=== PATIENT | male | born 1945 | race Asian ===

== ENCOUNTER 2023-06-19 19:08 | Emergency (ER) | payer MEDICARE, BC ==
[~2023-06-19] VITALS: Ht 167.6 cm; Wt 68.9 kg
[2023-06-19 20:01] LABS: EOSINOPHILS % (AUTO) 0.1 % (0.0-6.0); HEMATOCRIT 24 % (39-51); HEMOGLOBIN 7.5 g/dL (13.5-17.5); LYMPHOCYTES # (AUTO) 0.2 K/uL (0.8-4.8); LYMPHOCYTES % (AUTO) 2.9 % (20.0-44.0); MEAN CORPUSCULAR HEMOGLOBIN 21 PG (26.0-33.0); MEAN CORPUSCULAR HGB CONC 31 g/dl (31.0-36.0); MEAN CORPUSCULAR VOLUME 68 fL (80-96); MONOCYTES # (AUTO) 0.8 K/uL (0.1-1.30); MONOCYTES % (AUTO) 12.8 % (2.0-12.0); NEUTROPHILS # (AUTO) 5.2 K/uL (1.8-8.9); NEUTROPHILS % (AUTO) 84.2 % (43.0-81.0); PLATELET COUNT (AUTO) 207 K/uL (150-450); RED BLOOD CELL COUNT(AUTO) 3.53 MIL/uL (4.5-6.0); RED CELL DISTRIBUTION WIDTH 17.7 % (11.5-15.0); WHITE BLOOD COUNT (AUTO) 6.1 K/uL (4.3-11.0)
[2023-06-19 20:33] LABS: CARBON DIOXIDE 23 mmol/L (21-32); CHLORIDE 110 mmol/L (98-107); CREATININE 4.3 mg/dL (0.6-1.3); GLUCOSE 113 mg/dL (74-106); POTASSIUM 3.6 mmol/L (3.5-5.1); SODIUM SERUM 146 mmol/L (136-145)
[2023-06-19 20:45] LABS: NT-PRO BNP 3412 pg/mL (0-125)
[2023-06-19 21:04] LABS: UREA NITROGEN, BLOOD 89 mg/dL (7-18)
[2023-06-19] MEDS ORDERED: AMOX-430 PO (21:08)
[2023-06-19] MEDS ORDERED: IV NS 0.9% 1,000 ML BAG IV ONE (21:30)
[2023-06-19 21:36] LABS: ANISOCYTOSIS 1+; BAND % (MANUAL) 16 % (0.0-5.0); HYPOCHROMASIA 1+; LYMPHOCYTES % (MANUAL) 4 % (16-48); MONOCYTES % (MANUAL) 7 % (0-11.0); MYELOCYTES % 3 % (0-0); NEUTROPHILS % (MANUAL) 70 (42-76); PLATELET ESTIMATE ADEQUATE
[2023-06-19 21:37] LABS: OVALOCYTES 1+
[2023-06-19 23:39] VITALS: BP 105/58; TEMP 98.7; O2SAT 94
== END 2023-06-19 23:40 ==
LOC: ER 19:19
DX: J98.4 Other disorders of lung (principal); R06.02 Shortness of breath; I10 Essential (primary) hypertension; G20.A1 Parkinson's disease without dyskinesia, without mention of fluctuations
CPT/HCPCS: 99285; 96360; 71045; 93005 ×2; 85025; 80048; 36415; 84484; 83880; 85007; J7030

== ENCOUNTER 2023-06-21 21:34 | Inpatient (IN) | payer MEDICARE, BC ==
[~2023-06-21] VITALS: Ht 172.7 cm; Wt 73.9 kg
[~2023-06-21 21:34] MED LIST: AMOX-430 PO
[2023-06-21] MEDS ORDERED: ATROPINE SULFATE INJ 1 MG/ML VIAL ONE (21:57)
[2023-06-21] MEDS ORDERED: IV NS 0.9% 1,000 ML BAG IV ONE (22:00)
[2023-06-21] MEDS ORDERED: ATROPINE SULFATE 1 MG/10 ML DISP.SYRIN IV ONE ×2 (22:00→22:30)
[2023-06-21 22:42] LABS: BASOPHILS # (AUTO) 0.2 K/uL (0.0-0.2); BASOPHILS % (AUTO) 1.3 % (0.0-2.0); EOSINOPHILS % (AUTO) 0.3 % (0.0-6.0); HEMATOCRIT 24 % (39-51); HEMOGLOBIN 7.2 g/dL (13.5-17.5); LYMPHOCYTES # (AUTO) 0.3 K/uL (0.8-4.8); LYMPHOCYTES % (AUTO) 2.8 % (20.0-44.0); MEAN CORPUSCULAR HEMOGLOBIN 21 PG (26.0-33.0); MEAN CORPUSCULAR HGB CONC 31 g/dl (31.0-36.0); MEAN CORPUSCULAR VOLUME 69 fL (80-96); MONOCYTES # (AUTO) 0.5 K/uL (0.1-1.30); MONOCYTES % (AUTO) 4.4 % (2.0-12.0); NEUTROPHILS % (AUTO) 91.2 % (43.0-81.0); PLATELET COUNT (AUTO) 218 K/uL (150-450); RED BLOOD CELL COUNT(AUTO) 3.42 MIL/uL (4.5-6.0); RED CELL DISTRIBUTION WIDTH 17.6 % (11.5-15.0)
[2023-06-21 22:57] LABS: CALCIUM, SERUM 8.3 mg/dL (8.5-10.1); CARBON DIOXIDE 20 mmol/L (21-32); CHLORIDE 107 mmol/L (98-107); CREATININE 5.2 mg/dL (0.6-1.3); GLUCOSE 148 mg/dL (74-106); SODIUM SERUM 143 mmol/L (136-145)
[2023-06-21 23:06] LABS: UREA NITROGEN, BLOOD 114 mg/dL (7-18)
[2023-06-21 23:12] LABS: ALANINE AMINOTRANSFERASE 7 U/L (12-78); ALBUMIN 2.4 g/dL (3.4-5.0); ALKALINE PHOSPHATASE 46 U/L (46-116); ASPARTATE AMINOTRANSFERASE 9 U/L (15-37); BILIRUBIN,DIRECT 0.1 mg/dL (0.0-0.2); BILIRUBIN,TOTAL 0.2 mg/dL (0.2-1.0); TOTAL PROTEIN, SERUM 5.5 g/dL (6.4-8.2)
[2023-06-22] VITALS (34 sets, daily range): BP systolic 90–138; BP diastolic 38–60; TEMP 95–98.4; O2SAT 94–100
[2023-06-22] MEDS ORDERED: EPINEPHRINE (1:1000) 1 MG/ML AMPUL ONE (00:13)
[2023-06-22] MEDS: EPINEPHRINE (1:1000) 10 MG in IV NS 0.9% 240 ML IV PRN ×2 (00:29→01:04)
[2023-06-22] MEDS ORDERED: Z GUARD REMEDY 4 OZ OINT TP PRN (01:30)
[2023-06-22] MEDS ORDERED: MAG HYDROX/AL HYDROX/SIMETH 30 ML UDC PO PRN (01:30)
[2023-06-22] MEDS ORDERED: NOREPINEPHRINE 32 MG in IV NS 0.9% 218 ML IV PRN (01:30)
[2023-06-22] MEDS ORDERED: ONDANSETRON HCL/PF 4 MG/2 ML VIAL IVP PRN (01:30)
[2023-06-22] MEDS ORDERED: ZOLPIDEM TARTRATE 5 MG TABLET PO PRN (01:30)
[2023-06-22] MEDS ORDERED: MAGNESIUM HYDROXIDE 30 ML UDC PO PRN (01:30)
[2023-06-22 01:51] LABS: PARTIAL THROMBOPLASTIN TIME 92.9 SEC (24.3-34.3)
[2023-06-22] MEDS ORDERED: EPINEPHRINE (1:1000) MDV 30 MG/30ML VIAL ONE (01:54)
[2023-06-22] MEDS ORDERED: ERGO50CA PO (02:01)
[2023-06-22] MEDS ORDERED: LACO200T2 PO (02:01)
[2023-06-22] MEDS ORDERED: FERR325T23 PO (02:01)
[2023-06-22] MEDS ORDERED: MELA1TAB17 PO (02:01)
[2023-06-22] MEDS ORDERED: SENN-261 PO (02:01)
[2023-06-22] MEDS ORDERED: LIOT5TAB11 PO (02:01)
[2023-06-22] MEDS ORDERED: WARF-68 PO (02:01)
[2023-06-22] MEDS ORDERED: CARB-36 PO (02:01)
[2023-06-22] MEDS ORDERED: CARV12.52 PO (02:01)
[2023-06-22] MEDS ORDERED: TAMS-12 PO (02:01)
[2023-06-22] MEDS ORDERED: FEBU40TA PO (02:01)
[2023-06-22] MEDS ORDERED: TRAZ-182 PO (02:01)
[2023-06-22] MEDS ORDERED: ISOS120T13 PO (02:01)
[2023-06-22] MEDS ORDERED: LEVE250T2 PO (02:01)
[2023-06-22] MEDS ORDERED: NIFE-34 PO (02:01)
[2023-06-22] MEDS ORDERED: LISI10TA29 PO (02:01)
[2023-06-22] MEDS ORDERED: POLY17PO4 PO (02:01)
[2023-06-22] MEDS ORDERED: IPRA4AER IH (02:01)
[2023-06-22] MEDS ORDERED: FOLI20CA PO (02:01)
[2023-06-22] MEDS ORDERED: HYDR100T27 PO (02:01)
[2023-06-22] MEDS ORDERED: VANCOMYCIN 1.5 GM in IV D5W 500ml IV ONE (02:30)
[2023-06-22] MEDS ORDERED: PIPERACILLIN /TAZOBACTAM 3.375 G in IV D5W 50 ML IV ONE (02:30)
[2023-06-22] MEDS: IV NS 0.9% 1,000 ML IV PRN ×2 (03:26→22:36)
[2023-06-22] MEDS ORDERED: VANCOMYCIN 1 GM /D5W 250 ML PB IV ONE (03:41)
[2023-06-22] MEDS ORDERED: PIPERACI/TAZO 3.375GM/D5W 50ML PB IV ONE (03:42)
[2023-06-22] MEDS: IPRATROPIUM NEB FS 0.5 MG/2.5 ML AMPUL.NEB NEB SCH ×3 (06:00→20:18)
[2023-06-22] MEDS: ALBUTEROL FS 2.5 MG/3 ML VIAL.NEB NEB SCH ×3 (06:00→20:18)
[2023-06-22] MEDS ORDERED: PHYTONADIONE INJ 10 MG/1 ML AMPUL SQ ONE (08:00)
[2023-06-22 08:32] LABS: INR > 10.00 (0.91-1.10)
[2023-06-22] MEDS ORDERED: PIPERACILLIN /TAZOBACTAM 3.375 G in IV D5W 50 ML IV SCH (09:00)
[2023-06-22] MEDS ORDERED: HYDR28.32 TP (09:31)
[2023-06-22] MEDS ORDERED: MELA5TAB PO (09:31)
[2023-06-22] MEDS ORDERED: IVER3TAB2 PO (09:31)
[2023-06-22] MEDS ORDERED: ALBU18HF2 IH (09:31)
[2023-06-22] MEDS ORDERED: WARF3TAB59 PO (09:31)
[2023-06-22] MEDS ORDERED: TRIA80CR12 TP (09:31)
[2023-06-22] MEDS ORDERED: PANT40TA49 PO (09:31)
[2023-06-22] MEDS ORDERED: FOLI0.4T6 PO (09:31)
[2023-06-22] MEDS ORDERED: CALC667C6 PO (09:31)
[2023-06-22] MEDS ORDERED: LEVO-146 PO (09:31)
[2023-06-22] MEDS ORDERED: BISA5TAB10 PO (09:31)
[2023-06-22] MEDS ORDERED: [UNRECOGNIZED DRUG - CODE] RIGHT EAR (09:31)
[2023-06-22 10:32] LABS: ALBUMIN 2.2 g/dL (3.4-5.0); ALKALINE PHOSPHATASE 53 U/L (46-116); ASPARTATE AMINOTRANSFERASE 8 U/L (15-37); BILIRUBIN,TOTAL 0.2 mg/dL (0.2-1.0); CALCIUM, SERUM 7.8 mg/dL (8.5-10.1); CARBON DIOXIDE 19 mmol/L (21-32); CHLORIDE 106 mmol/L (98-107); CREATININE 5.1 mg/dL (0.6-1.3); GLUCOSE 290 mg/dL (74-106); MAGNESIUM 2.2 mg/dL (1.8-2.4); POTASSIUM 3.7 mmol/L (3.5-5.1); SODIUM SERUM 140 mmol/L (136-145)
[2023-06-22 10:42] LABS: BASOPHILS # (AUTO) 0.1 K/uL (0.0-0.2); BASOPHILS % (AUTO) 0.5 % (0.0-2.0); EOSINOPHILS % (AUTO) 0.1 % (0.0-6.0); HEMATOCRIT 21 % (39-51); LYMPHOCYTES # (AUTO) 0.2 K/uL (0.8-4.8); LYMPHOCYTES % (AUTO) 1.5 % (20.0-44.0); MEAN CORPUSCULAR HEMOGLOBIN 22 PG (26.0-33.0); MEAN CORPUSCULAR HGB CONC 32 g/dl (31.0-36.0); MEAN CORPUSCULAR VOLUME 68 fL (80-96); MONOCYTES # (AUTO) 0.4 K/uL (0.1-1.30); MONOCYTES % (AUTO) 3.9 % (2.0-12.0); NEUTROPHILS # (AUTO) 9.9 K/uL (1.8-8.9); PLATELET COUNT (AUTO) 186 K/uL (150-450); RED BLOOD CELL COUNT(AUTO) 3.04 MIL/uL (4.5-6.0); RED CELL DISTRIBUTION WIDTH 17.7 % (11.5-15.0); WHITE BLOOD COUNT (AUTO) 10.6 K/uL (4.3-11.0)
[2023-06-22 10:45] LABS: HEMOGLOBIN 6.5 g/dL (13.5-17.5)
[2023-06-22 10:53] LABS: UREA NITROGEN, BLOOD 114 mg/dL (7-18)
[2023-06-22 11:04] LABS: ALANINE AMINOTRANSFERASE < 6 U/L (12-78)
[2023-06-22] MEDS ORDERED: PIPERACILLIN /TAZOBACTAM 3.375 G in IV D5W 100 ML IV SCH (12:00)
[2023-06-22 12:18] LABS: THYROID STIMULATING HORMONE 3.232 uIU/mL (0.358-3.74)
[2023-06-22] MEDS ORDERED: IPRATROPIUM NEB FS 0.5 MG/2.5 ML AMPUL.NEB NEB SCH (12:54)
[2023-06-22] MEDS ORDERED: ALBUTEROL FS 2.5 MG/3 ML VIAL.NEB NEB SCH (12:55)
[2023-06-22] MEDS: SOD FERRIC GLUC 125 MG in IV NS 0.9% 100 ML IV SCH (21:05)
[2023-06-22] MEDS: METRONIDAZOLE 500MG/ NS 100ML 500 MG in PREMIX 1 EA IV SCH (21:44)
[2023-06-22] MEDS: CEFEPIME 1 GM in IV D5W 50 ML IV SCH (23:13)
[2023-06-23] VITALS (11 sets, daily range): BP systolic 70–138; BP diastolic 44–68; TEMP 94–98.1; O2SAT 93–100
[2023-06-23] MEDS ORDERED: IV NS 0.9% 500 ML IV ONE ×2 (00:30→02:00)
[2023-06-23] MEDS: ALBUTEROL FS 2.5 MG/3 ML VIAL.NEB NEB SCH ×4 (01:54→20:14)
[2023-06-23] MEDS: IPRATROPIUM NEB FS 0.5 MG/2.5 ML AMPUL.NEB NEB SCH ×4 (01:54→20:14)
[2023-06-23 01:58] LABS: ANISOCYTOSIS 1+; MONOCYTES % (MANUAL) 1 % (0-11.0); PLATELET ESTIMATE ADEQUATE
[2023-06-23 01:59] LABS: OVALOCYTES 1+
[2023-06-23 02:04] LABS: BAND % (MANUAL) 2 % (0.0-5.0); LYMPHOCYTES % (MANUAL) 1 % (16-48); MYELOCYTES % 2 % (0-0); NEUTROPHILS % (MANUAL) 94 (42-76)
[2023-06-23] MEDS: METRONIDAZOLE 500MG/ NS 100ML 500 MG in PREMIX 1 EA IV SCH ×3 (04:50→20:58)
[2023-06-23 07:34] LABS: CREATINE KINASE, TOTAL 90 U/L (39-308)
[2023-06-23 07:36] LABS: BASOPHILS % (AUTO) 0.1 % (0.0-2.0); EOSINOPHILS # (AUTO) 0.1 K/uL (0.0-0.7); EOSINOPHILS % (AUTO) 1.5 % (0.0-6.0); HEMATOCRIT 28 % (39-51); HEMOGLOBIN 8.8 g/dL (13.5-17.5); LYMPHOCYTES # (AUTO) 0.2 K/uL (0.8-4.8); LYMPHOCYTES % (AUTO) 4.1 % (20.0-44.0); MEAN CORPUSCULAR HEMOGLOBIN 22 PG (26.0-33.0); MEAN CORPUSCULAR HGB CONC 32 g/dl (31.0-36.0); MEAN CORPUSCULAR VOLUME 70 fL (80-96); MONOCYTES # (AUTO) 0.3 K/uL (0.1-1.30); MONOCYTES % (AUTO) 6.6 % (2.0-12.0); NEUTROPHILS # (AUTO) 4.5 K/uL (1.8-8.9); NEUTROPHILS % (AUTO) 87.7 % (43.0-81.0); PLATELET COUNT (AUTO) 182 K/uL (150-450); RED BLOOD CELL COUNT(AUTO) 3.93 MIL/uL (4.5-6.0); RED CELL DISTRIBUTION WIDTH 18.8 % (11.5-15.0); WHITE BLOOD COUNT (AUTO) 5.1 K/uL (4.3-11.0)
[2023-06-23 07:38] LABS: ALANINE AMINOTRANSFERASE < 6 U/L (12-78); ALKALINE PHOSPHATASE 45 U/L (46-116); ASPARTATE AMINOTRANSFERASE 10 U/L (15-37); BILIRUBIN,TOTAL 0.3 mg/dL (0.2-1.0); CALCIUM, SERUM 7.4 mg/dL (8.5-10.1); CARBON DIOXIDE 15 mmol/L (21-32); CHLORIDE 109 mmol/L (98-107); CREATININE 5.3 mg/dL (0.6-1.3); GLUCOSE 66 mg/dL (74-106); MAGNESIUM 2.1 mg/dL (1.8-2.4); PHOSPHORUS 5.6 mg/dL (2.5-4.9); POTASSIUM 3.7 mmol/L (3.5-5.1); SODIUM SERUM 142 mmol/L (136-145); TOTAL PROTEIN, SERUM 4.7 g/dL (6.4-8.2)
[2023-06-23 07:49] LABS: UREA NITROGEN, BLOOD 114 mg/dL (7-18)
[2023-06-23] MEDS ORDERED: PHYTONADIONE INJ 10 MG/1 ML AMPUL IM SCH (09:30)
[2023-06-23] MEDS ORDERED: PHYTONADIONE INJ 10 MG/1 ML AMPUL SQ SCH (09:30)
[2023-06-23] MEDS: CEFEPIME 1 GM in IV D5W 50 ML IV SCH ×2 (10:25→22:57)
[2023-06-23] MEDS: CARBIDOPA/LEVODOPA 25/100 MG 1 UDTAB PO SCH ×3 (13:00→20:58)
[2023-06-23] MEDS ORDERED: FERROUS SULFATE (325 MG) 325 MG/TAB TABLET PO SCH (13:00)
[2023-06-23] MEDS: CALCIUM ACETATE 667 MG CAP/TAB PO SCH ×2 (13:00→17:30)
[2023-06-23] MEDS: SOD FERRIC GLUC 125 MG in IV NS 0.9% 100 ML IV SCH (14:31)
[2023-06-23 14:58] LABS: HEMOGLOBIN 9.6 g/dL (13.5-17.5)
[2023-06-23 15:08] LABS: INR 1.36 (0.91-1.10); PROTHROMBIN TIME 14.1 SECS (9.2-11.1)
[2023-06-23] MEDS: IV NS 0.9% 1,000 ML IV PRN (15:35)
[2023-06-23] MEDS ORDERED: NIFEDIPINE XL 60 MG TAB.ER.24 PO SCH (17:00)
[2023-06-23] MEDS ORDERED: CARVEDILOL 12.5 MG TABLET PO SCH (17:00)
[2023-06-23] MEDS: TAMSULOSIN 0.4 MG CAP.SR.24H PO SCH (17:28)
[2023-06-23] MEDS: LEVETIRACETAM (250 MG) 250 MG TABLET PO SCH (17:30)
[2023-06-23] MEDS: LACOSAMIDE 50 MG TABLET PO SCH (17:31)
[2023-06-23 19:40] LABS: APPEARANCE,URINE CLEAR (CLEAR); BILIRUBIN,URINE NEGATIVE (NEGATIVE); BLOOD, URINE 1+ Ery/uL (NEGATIVE); COLOR,URINE YELLOW (YELLOW); KETONES,URINE TRACE mg/dL (NEGATIVE); LEUKOCYTE ESTERASE ,URINE 2+ (NEGATIVE); NITRITE, URINE NEGATIVE (NEGATIVE); PH,URINE 5.5 (5.0-8.0); PROTEIN,URINE 2+ mg/dl (NEGATIVE); UGLUCOSE NEGATIVE (NEGATIVE); UROBILINOGEN,URINE 0.2 EU/dL (0.2)
[2023-06-23 20:00] LABS: ADD URINE CULTURE YES; BACTERIA,URINE 3+ /HPF (None Seen); MUCUS,URINE Moderate /LPF (None Seen); SQUAMOUS EPITHELIAL CELL,UR None Seen /HPF (None Seen)
[2023-06-23 20:18] LABS: HEMOGLOBIN 9.6 g/dL (13.5-17.5)
[2023-06-23 20:20] LABS: EOSINOPHIL,URINE None Seen
[2023-06-23 21:06] LABS: CREATININE, URINE 67.7 MG/DL (30.0-125.0); URINE TOTAL PROTEIN 169.7 mg/dL (0-11.9)
[2023-06-24] VITALS (15 sets, daily range): BP systolic 100–134; BP diastolic 47–56; TEMP 96–97.6; O2SAT 95–100
[2023-06-24] MEDS: ALBUTEROL FS 2.5 MG/3 ML VIAL.NEB NEB SCH ×4 (04:28→20:01)
[2023-06-24] MEDS: IPRATROPIUM NEB FS 0.5 MG/2.5 ML AMPUL.NEB NEB SCH ×4 (04:28→20:01)
[2023-06-24 05:08] LABS: PTH, INTACT 84 pg/mL (15-65)
[2023-06-24] MEDS: METRONIDAZOLE 500MG/ NS 100ML 500 MG in PREMIX 1 EA IV SCH ×3 (05:20→20:52)
[2023-06-24 06:32] LABS: HEMOGLOBIN 9.6 g/dL (13.5-17.5)
[2023-06-24 06:47] LABS: CALCIUM, SERUM 7.5 mg/dL (8.5-10.1); CARBON DIOXIDE 16 mmol/L (21-32); CHLORIDE 111 mmol/L (98-107); CREATININE 5.6 mg/dL (0.6-1.3); GLUCOSE 72 mg/dL (74-106); POTASSIUM 3.7 mmol/L (3.5-5.1); SODIUM SERUM 145 mmol/L (136-145)
[2023-06-24 06:50] LABS: UREA NITROGEN, BLOOD 104 mg/dL (7-18)
[2023-06-24 06:52] LABS: INR 1.13 (0.91-1.10); PROTHROMBIN TIME 11.9 SECS (9.2-11.1)
[2023-06-24] MEDS: IV NS 0.9% 1,000 ML IV PRN (07:35)
[2023-06-24] MEDS: PANTOPRAZOLE 40 MG TABLET.DR PO SCH (07:36)
[2023-06-24] MEDS: LEVOTHYROXINE SODIUM 50 MCG TABLET PO SCH (07:36)
[2023-06-24] MEDS ORDERED: LISINOPRIL (10MG) 10 MG TABLET PO SCH (09:00)
[2023-06-24] MEDS ORDERED: ENOXAPARIN SODIUM 80 MG/0.8 ML DISP.SYRIN SQ SCH (09:00)
[2023-06-24] MEDS: TAMSULOSIN 0.4 MG CAP.SR.24H PO SCH ×3 (09:27→16:37)
[2023-06-24] MEDS: CARBIDOPA/LEVODOPA 25/100 MG 1 UDTAB PO SCH ×4 (09:27→20:52)
[2023-06-24] MEDS: CALCIUM ACETATE 667 MG CAP/TAB PO SCH ×4 (09:27→16:38)
[2023-06-24] MEDS: LEVETIRACETAM (250 MG) 250 MG TABLET PO SCH ×3 (09:27→16:38)
[2023-06-24] MEDS: LACOSAMIDE 50 MG TABLET PO SCH ×3 (09:28→16:38)
[2023-06-24] MEDS: CEFEPIME 1 GM in IV D5W 50 ML IV SCH ×2 (10:35→23:05)
[2023-06-24 12:07] LABS: *SPE A/G RATIO 1.2 (0.7-1.7); *SPE ALBUMIN 2.3 g/dL (2.9-4.4); *SPE ALPHA-1-GLOBULIN 0.3 g/dL (0.0-0.4); *SPE ALPHA-2-GLOBULIN 0.6 g/dL (0.4-1.0); *SPE BETA GLOBULIN 0.7 g/dL (0.7-1.3); *SPE M-SPIKE Not Observed g/dL (Not Observed); *SPE PROTEIN TOTAL 4.3 g/dL (6.0-8.5); *SPEGAMMA GLOBULIN 0.5 g/dL (0.4-1.8)
[2023-06-24] MEDS: VANCOMYCIN HCL 125 MG/2.5 ML ORAL.SUSP PO SCH ×3 (12:52→23:05)
[2023-06-24] MEDS: SOD FERRIC GLUC 125 MG in IV NS 0.9% 100 ML IV SCH (14:44)
[2023-06-24] MEDS: WARFARIN SODIUM 5 MG TABLET PO SCH ×2 (16:22→16:37)
[2023-06-25] VITALS (14 sets, daily range): BP systolic 111–148; BP diastolic 45–85; TEMP 96.8–98.6; O2SAT 94–100
[2023-06-25] MEDS: IPRATROPIUM NEB FS 0.5 MG/2.5 ML AMPUL.NEB NEB SCH ×5 (01:18→20:28)
[2023-06-25] MEDS: ALBUTEROL FS 2.5 MG/3 ML VIAL.NEB NEB SCH ×5 (01:18→20:28)
[2023-06-25] MEDS: IV NS 0.9% 1,000 ML IV PRN ×2 (01:52→20:07)
[2023-06-25] MEDS: ACETAMINOPHEN 325 MG TABLET PO PRN (02:13)
[2023-06-25] MEDS ORDERED: VANCOMYCIN 1 GM in IV D5W 250ml IV SCH (04:00)
[2023-06-25] MEDS: METRONIDAZOLE 500MG/ NS 100ML 500 MG in PREMIX 1 EA IV SCH ×3 (04:54→20:10)
[2023-06-25] MEDS: VANCOMYCIN HCL 125 MG/2.5 ML ORAL.SUSP PO SCH ×4 (05:02→23:36)
[2023-06-25 06:22] LABS: BASOPHILS % (AUTO) 0.2 % (0.0-2.0); EOSINOPHILS # (AUTO) 0.1 K/uL (0.0-0.7); EOSINOPHILS % (AUTO) 1.5 % (0.0-6.0); HEMATOCRIT 30 % (39-51); HEMOGLOBIN 9.2 g/dL (13.5-17.5); LYMPHOCYTES # (AUTO) 0.4 K/uL (0.8-4.8); LYMPHOCYTES % (AUTO) 5.4 % (20.0-44.0); MEAN CORPUSCULAR HEMOGLOBIN 22 PG (26.0-33.0); MEAN CORPUSCULAR HGB CONC 31 g/dl (31.0-36.0); MEAN CORPUSCULAR VOLUME 72 fL (80-96); MONOCYTES # (AUTO) 0.7 K/uL (0.1-1.30); NEUTROPHILS # (AUTO) 6.1 K/uL (1.8-8.9); NEUTROPHILS % (AUTO) 82.9 % (43.0-81.0); PLATELET COUNT (AUTO) 200 K/uL (150-450); RED BLOOD CELL COUNT(AUTO) 4.13 MIL/uL (4.5-6.0); WHITE BLOOD COUNT (AUTO) 7.3 K/uL (4.3-11.0)
[2023-06-25 06:30] LABS: INR 1.03 (0.91-1.10); PROTHROMBIN TIME 10.9 SECS (9.2-11.1)
[2023-06-25 06:37] LABS: CALCIUM, SERUM 7.8 mg/dL (8.5-10.1); CARBON DIOXIDE 15 mmol/L (21-32); CHLORIDE 112 mmol/L (98-107); CREATININE 5.7 mg/dL (0.6-1.3); GLUCOSE 78 mg/dL (74-106); MAGNESIUM 2.1 mg/dL (1.8-2.4); PHOSPHORUS 5.6 mg/dL (2.5-4.9); POTASSIUM 3.8 mmol/L (3.5-5.1); SODIUM SERUM 145 mmol/L (136-145)
[2023-06-25] MEDS: LEVOTHYROXINE SODIUM 50 MCG TABLET PO SCH (07:30)
[2023-06-25] MEDS: PANTOPRAZOLE 40 MG TABLET.DR PO SCH (07:30)
[2023-06-25 07:47] LABS: UREA NITROGEN, BLOOD 111 mg/dL (7-18)
[2023-06-25 08:42] LABS: EOSINOPHILS % (MANUAL) 1 % (0-4); LYMPHOCYTES % (MANUAL) 3 % (16-48); MONOCYTES % (MANUAL) 5 % (0-11.0); NEUTROPHILS % (MANUAL) 91 (42-76)
[2023-06-25 08:43] LABS: ANISOCYTOSIS 2+; PLATELET ESTIMATE ADEQUATE
[2023-06-25] MEDS: CALCIUM ACETATE 667 MG CAP/TAB PO SCH ×3 (09:00→18:00)
[2023-06-25] MEDS: LEVETIRACETAM (250 MG) 250 MG TABLET PO SCH ×2 (09:00→18:00)
[2023-06-25] MEDS: TAMSULOSIN 0.4 MG CAP.SR.24H PO SCH ×2 (09:00→17:00)
[2023-06-25] MEDS: CARBIDOPA/LEVODOPA 25/100 MG 1 UDTAB PO SCH ×4 (09:00→20:10)
[2023-06-25] MEDS: LACOSAMIDE 50 MG TABLET PO SCH ×2 (09:00→17:00)
[2023-06-25] MEDS ORDERED: ENOXAPARIN SODIUM 80 MG/0.8 ML DISP.SYRIN SQ SCH (09:30)
[2023-06-25] MEDS: ENOXAPARIN SODIUM 80 MG/0.8 ML DISP.SYRIN SQ SCH (10:00)
[2023-06-25] MEDS: CEFEPIME 1 GM in IV D5W 50 ML IV SCH ×2 (11:18→23:12)
[2023-06-25] MEDS ORDERED: LEVETIRACETAM (500MG) 500 MG in IV NS 0.9% 100 ML IV ONE (11:30)
[2023-06-25] MEDS ORDERED: LACOSAMIDE 200 MG in IV NS 0.9% 100 ML IV ONE (12:00)
[2023-06-25] MEDS: SOD FERRIC GLUC 125 MG in IV NS 0.9% 100 ML IV SCH (15:28)
[2023-06-25] MEDS: WARFARIN SODIUM 5 MG TABLET PO SCH (17:00)
[2023-06-25] MEDS ORDERED: ANESTHESIA TRAY IN PYXIS 1 EA TRAY MC ONE (17:34)
[2023-06-26] VITALS (28 sets, daily range): BP systolic 79–146; BP diastolic 43–83; TEMP 96.3–98.4; O2SAT 97–100
[2023-06-26] MEDS: ALBUTEROL FS 2.5 MG/3 ML VIAL.NEB NEB SCH ×4 (02:16→19:29)
[2023-06-26] MEDS: IPRATROPIUM NEB FS 0.5 MG/2.5 ML AMPUL.NEB NEB SCH ×4 (02:16→19:29)
[2023-06-26] MEDS: METRONIDAZOLE 500MG/ NS 100ML 500 MG in PREMIX 1 EA IV SCH ×3 (04:53→21:15)
[2023-06-26] MEDS: VANCOMYCIN HCL 125 MG/2.5 ML ORAL.SUSP PO SCH ×4 (05:41→23:58)
[2023-06-26 07:22] LABS: INR 1.02 (0.91-1.10); PROTHROMBIN TIME 10.8 SECS (9.2-11.1)
[2023-06-26 07:39] LABS: CALCIUM, SERUM 7.8 mg/dL (8.5-10.1); CARBON DIOXIDE 11 mmol/L (21-32); CHLORIDE 114 mmol/L (98-107); CREATININE 6.3 mg/dL (0.6-1.3); GLUCOSE 73 mg/dL (74-106); POTASSIUM 3.9 mmol/L (3.5-5.1); SODIUM SERUM 145 mmol/L (136-145)
[2023-06-26 07:41] LABS: UREA NITROGEN, BLOOD 104 mg/dL (7-18)
[2023-06-26] MEDS: PANTOPRAZOLE 40 MG TABLET.DR PO SCH (07:46)
[2023-06-26] MEDS: LEVOTHYROXINE SODIUM 50 MCG TABLET PO SCH (07:46)
[2023-06-26 08:52] LABS: BASOPHILS % (AUTO) 0.5 % (0.0-2.0); EOSINOPHILS % (AUTO) 0.6 % (0.0-6.0); HEMATOCRIT 32 % (39-51); HEMOGLOBIN 9.8 g/dL (13.5-17.5); LYMPHOCYTES # (AUTO) 0.5 K/uL (0.8-4.8); LYMPHOCYTES % (AUTO) 6.5 % (20.0-44.0); MEAN CORPUSCULAR HEMOGLOBIN 22 PG (26.0-33.0); MEAN CORPUSCULAR HGB CONC 31 g/dl (31.0-36.0); MEAN CORPUSCULAR VOLUME 73 fL (80-96); MONOCYTES # (AUTO) 0.7 K/uL (0.1-1.30); MONOCYTES % (AUTO) 9.8 % (2.0-12.0); NEUTROPHILS # (AUTO) 6.3 K/uL (1.8-8.9); NEUTROPHILS % (AUTO) 82.6 % (43.0-81.0); PLATELET COUNT (AUTO) 199 K/uL (150-450); RED BLOOD CELL COUNT(AUTO) 4.42 MIL/uL (4.5-6.0); RED CELL DISTRIBUTION WIDTH 20.1 % (11.5-15.0); WHITE BLOOD COUNT (AUTO) 7.6 K/uL (4.3-11.0)
[2023-06-26] MEDS: LEVETIRACETAM (250 MG) 250 MG TABLET PO SCH ×2 (09:26→17:00)
[2023-06-26] MEDS: LACOSAMIDE 50 MG TABLET PO SCH ×2 (09:26→17:00)
[2023-06-26] MEDS: CARBIDOPA/LEVODOPA 25/100 MG 1 UDTAB PO SCH ×4 (09:26→21:14)
[2023-06-26] MEDS: TAMSULOSIN 0.4 MG CAP.SR.24H PO SCH ×2 (09:26→17:00)
[2023-06-26] MEDS: CALCIUM ACETATE 667 MG CAP/TAB PO SCH ×3 (09:26→17:00)
[2023-06-26] MEDS: ENOXAPARIN SODIUM 80 MG/0.8 ML DISP.SYRIN SQ SCH (09:28)
[2023-06-26] MEDS: ACETAMINOPHEN 325 MG TABLET PO PRN (10:08)
[2023-06-26] MEDS: IV NS 0.9% 1,000 ML IV PRN ×2 (14:15→20:48)
[2023-06-26] MEDS: SOD FERRIC GLUC 125 MG in IV NS 0.9% 100 ML IV SCH (15:11)
[2023-06-26] MEDS: WARFARIN SODIUM 5 MG TABLET PO SCH (17:00)
[2023-06-26] MEDS ORDERED: Magnesium 1 GM/2 ML VIAL ONE ×2 (18:48→21:56)
[2023-06-26] MEDS ORDERED: VASOPRESSIN INJ 20 UNIT/ML VIAL ONE (19:10)
[2023-06-26] MEDS ORDERED: NOREPINEPHRINE 8 MG in IV NS 0.9% 242 ML IV PRN (20:30)
[2023-06-27] VITALS (68 sets, daily range): BP systolic 75–166; BP diastolic 38–100; TEMP 96.9–97.5; O2SAT 92–100
[2023-06-27] MEDS: IPRATROPIUM NEB FS 0.5 MG/2.5 ML AMPUL.NEB NEB SCH ×4 (01:46→19:56)
[2023-06-27] MEDS: ALBUTEROL FS 2.5 MG/3 ML VIAL.NEB NEB SCH ×4 (01:46→19:56)
[2023-06-27] MEDS: METRONIDAZOLE 500MG/ NS 100ML 500 MG in PREMIX 1 EA IV SCH ×3 (04:42→21:00)
[2023-06-27 05:14] LABS: BASOPHILS % (AUTO) 0.2 % (0.0-2.0); HEMATOCRIT 36 % (39-51); HEMOGLOBIN 10.9 g/dL (13.5-17.5); LYMPHOCYTES # (AUTO) 0.2 K/uL (0.8-4.8); LYMPHOCYTES % (AUTO) 1.8 % (20.0-44.0); MEAN CORPUSCULAR HEMOGLOBIN 22 PG (26.0-33.0); MEAN CORPUSCULAR HGB CONC 31 g/dl (31.0-36.0); MEAN CORPUSCULAR VOLUME 72 fL (80-96); MONOCYTES # (AUTO) 0.8 K/uL (0.1-1.30); MONOCYTES % (AUTO) 6.7 % (2.0-12.0); NEUTROPHILS # (AUTO) 11.3 K/uL (1.8-8.9); NEUTROPHILS % (AUTO) 91.3 % (43.0-81.0); PLATELET COUNT (AUTO) 222 K/uL (150-450); RED BLOOD CELL COUNT(AUTO) 4.95 MIL/uL (4.5-6.0); RED CELL DISTRIBUTION WIDTH 20.6 % (11.5-15.0); WHITE BLOOD COUNT (AUTO) 12.3 K/uL (4.3-11.0)
[2023-06-27 05:26] LABS: INR 1.07 (0.91-1.10); PROTHROMBIN TIME 11.3 SECS (9.2-11.1)
[2023-06-27 05:36] LABS: ALANINE AMINOTRANSFERASE < 6 U/L (12-78); ALBUMIN 2.1 g/dL (3.4-5.0); ALKALINE PHOSPHATASE 55 U/L (46-116); ASPARTATE AMINOTRANSFERASE 17 U/L (15-37); BILIRUBIN,TOTAL 0.4 mg/dL (0.2-1.0); CALCIUM, SERUM 8.2 mg/dL (8.5-10.1); CARBON DIOXIDE 11 mmol/L (21-32); CHLORIDE 114 mmol/L (98-107); CREATININE 6.4 mg/dL (0.6-1.3); GLUCOSE 85 mg/dL (74-106); SODIUM SERUM 146 mmol/L (136-145); TOTAL PROTEIN, SERUM 5.2 g/dL (6.4-8.2)
[2023-06-27 05:37] LABS: UREA NITROGEN, BLOOD 115 mg/dL (7-18)
[2023-06-27] MEDS: VANCOMYCIN HCL 125 MG/2.5 ML ORAL.SUSP PO SCH ×4 (05:48→23:57)
[2023-06-27 08:07] LABS: HEPATITIS B CORE AB, IgM Negative (Negative); HEPATITIS B CORE AB, TOTAL Negative (Negative); HEPATITIS B SURFACE AB Non Reactive (.)
[2023-06-27] MEDS: LACOSAMIDE 50 MG TABLET PO SCH ×2 (08:35→16:56)
[2023-06-27] MEDS: PANTOPRAZOLE 40 MG TABLET.DR PO SCH (08:35)
[2023-06-27] MEDS: TAMSULOSIN 0.4 MG CAP.SR.24H PO SCH ×2 (08:35→16:55)
[2023-06-27] MEDS: LEVETIRACETAM (250 MG) 250 MG TABLET PO SCH ×2 (08:35→16:58)
[2023-06-27] MEDS: LEVOTHYROXINE SODIUM 50 MCG TABLET PO SCH (08:35)
[2023-06-27] MEDS: CALCIUM ACETATE 667 MG CAP/TAB PO SCH ×3 (08:35→17:00)
[2023-06-27] MEDS: CARBIDOPA/LEVODOPA 25/100 MG 1 UDTAB PO SCH ×4 (08:35→21:00)
[2023-06-27] MEDS: ENOXAPARIN SODIUM 80 MG/0.8 ML DISP.SYRIN SQ SCH (08:37)
[2023-06-27] MEDS: WARFARIN SODIUM 5 MG TABLET PO SCH (16:57)
[2023-06-28] VITALS (22 sets, daily range): BP systolic 89–165; BP diastolic 55–95; TEMP 97.5–97.9; O2SAT 93–99
[2023-06-28] MEDS: ALBUTEROL FS 2.5 MG/3 ML VIAL.NEB NEB SCH ×4 (01:40→19:30)
[2023-06-28] MEDS: IPRATROPIUM NEB FS 0.5 MG/2.5 ML AMPUL.NEB NEB SCH ×4 (01:40→19:30)
[2023-06-28] MEDS: METRONIDAZOLE 500MG/ NS 100ML 500 MG in PREMIX 1 EA IV SCH ×3 (05:00→20:20)
[2023-06-28 05:10] LABS: BASOPHILS % (AUTO) 0.1 % (0.0-2.0); EOSINOPHILS % (AUTO) 0.1 % (0.0-6.0); HEMATOCRIT 29 % (39-51); HEMOGLOBIN 9.1 g/dL (13.5-17.5); LYMPHOCYTES # (AUTO) 0.3 K/uL (0.8-4.8); LYMPHOCYTES % (AUTO) 2.1 % (20.0-44.0); MEAN CORPUSCULAR HEMOGLOBIN 22 PG (26.0-33.0); MEAN CORPUSCULAR HGB CONC 32 g/dl (31.0-36.0); MEAN CORPUSCULAR VOLUME 70 fL (80-96); MONOCYTES # (AUTO) 0.8 K/uL (0.1-1.30); MONOCYTES % (AUTO) 6.2 % (2.0-12.0); NEUTROPHILS # (AUTO) 11.1 K/uL (1.8-8.9); NEUTROPHILS % (AUTO) 91.5 % (43.0-81.0); PLATELET COUNT (AUTO) 148 K/uL (150-450); RED BLOOD CELL COUNT(AUTO) 4.08 MIL/uL (4.5-6.0); RED CELL DISTRIBUTION WIDTH 19.8 % (11.5-15.0); WHITE BLOOD COUNT (AUTO) 12.2 K/uL (4.3-11.0)
[2023-06-28 05:14] LABS: ALANINE AMINOTRANSFERASE < 6 U/L (12-78); ALKALINE PHOSPHATASE 48 U/L (46-116); ASPARTATE AMINOTRANSFERASE 37 U/L (15-37); BILIRUBIN,TOTAL 0.3 mg/dL (0.2-1.0); CALCIUM, SERUM 8.1 mg/dL (8.5-10.1); CARBON DIOXIDE 17 mmol/L (21-32); CHLORIDE 109 mmol/L (98-107); CREATININE 4.8 mg/dL (0.6-1.3); GLUCOSE 65 mg/dL (74-106); POTASSIUM 3.1 mmol/L (3.5-5.1); SODIUM SERUM 145 mmol/L (136-145); TOTAL PROTEIN, SERUM 4.8 g/dL (6.4-8.2); UREA NITROGEN, BLOOD 75 mg/dL (7-18)
[2023-06-28 05:16] LABS: INR 1.32 (0.91-1.10); PROTHROMBIN TIME 13.7 SECS (9.2-11.1)
[2023-06-28] MEDS: VANCOMYCIN HCL 125 MG/2.5 ML ORAL.SUSP PO SCH ×3 (06:01→18:00)
[2023-06-28] MEDS: LEVOTHYROXINE SODIUM 50 MCG TABLET PO SCH (07:30)
[2023-06-28] MEDS: PANTOPRAZOLE 40 MG TABLET.DR PO SCH (07:30)
[2023-06-28] MEDS: CALCIUM ACETATE 667 MG CAP/TAB PO SCH ×3 (08:38→17:00)
[2023-06-28] MEDS: LEVETIRACETAM (250 MG) 250 MG TABLET PO SCH ×2 (08:38→17:00)
[2023-06-28] MEDS: CARBIDOPA/LEVODOPA 25/100 MG 1 UDTAB PO SCH ×4 (08:38→21:00)
[2023-06-28] MEDS: TAMSULOSIN 0.4 MG CAP.SR.24H PO SCH ×2 (08:38→17:00)
[2023-06-28] MEDS: LACOSAMIDE 50 MG TABLET PO SCH ×2 (08:38→17:00)
[2023-06-28] MEDS: WARFARIN SODIUM 5 MG TABLET PO SCH (17:00)
[2023-06-28] MEDS: IV NS 0.9% 1,000 ML IV PRN (18:45)
[2023-06-28] MEDS ORDERED: VANCOMYCIN 1.5 GM in IV D5W 500ml IV ONE (22:00)
[2023-06-28] MEDS ORDERED: VANCOMYCIN 1 GM /D5W 250 ML PB IV ONE ×2 (22:14→22:15)
[2023-06-29] VITALS (11 sets, daily range): BP systolic 62–112; BP diastolic 44–67; TEMP 97–98.1; O2SAT 85–100
[2023-06-29] MEDS ORDERED: ACETAMINOPHEN 650 MG/SUPP.RECT RC PRN (01:00)
[2023-06-29] MEDS: VANCOMYCIN HCL 125 MG/2.5 ML ORAL.SUSP PO SCH ×4 (01:00→17:39)
[2023-06-29] MEDS: ALBUTEROL FS 2.5 MG/3 ML VIAL.NEB NEB SCH ×4 (01:30→20:22)
[2023-06-29] MEDS: IPRATROPIUM NEB FS 0.5 MG/2.5 ML AMPUL.NEB NEB SCH ×4 (01:30→20:22)
[2023-06-29] MEDS: METRONIDAZOLE 500MG/ NS 100ML 500 MG in PREMIX 1 EA IV SCH ×3 (05:35→21:09)
[2023-06-29 06:00] LABS: BASOPHILS # (AUTO) 0.1 K/uL (0.0-0.2); BASOPHILS % (AUTO) 0.9 % (0.0-2.0); EOSINOPHILS % (AUTO) 0.1 % (0.0-6.0); HEMATOCRIT 29 % (39-51); HEMOGLOBIN 9.2 g/dL (13.5-17.5); LYMPHOCYTES # (AUTO) 0.3 K/uL (0.8-4.8); LYMPHOCYTES % (AUTO) 2.7 % (20.0-44.0); MEAN CORPUSCULAR HEMOGLOBIN 22 PG (26.0-33.0); MEAN CORPUSCULAR HGB CONC 31 g/dl (31.0-36.0); MEAN CORPUSCULAR VOLUME 70 fL (80-96); MONOCYTES # (AUTO) 0.8 K/uL (0.1-1.30); MONOCYTES % (AUTO) 6.3 % (2.0-12.0); NEUTROPHILS # (AUTO) 11.1 K/uL (1.8-8.9); PLATELET COUNT (AUTO) 159 K/uL (150-450); RED BLOOD CELL COUNT(AUTO) 4.19 MIL/uL (4.5-6.0); RED CELL DISTRIBUTION WIDTH 20.5 % (11.5-15.0); WHITE BLOOD COUNT (AUTO) 12.3 K/uL (4.3-11.0)
[2023-06-29 06:02] LABS: INR 1.81 (0.91-1.10); PROTHROMBIN TIME 18.5 SECS (9.2-11.1)
[2023-06-29 06:10] LABS: ALANINE AMINOTRANSFERASE < 6 U/L (12-78); ALKALINE PHOSPHATASE 53 U/L (46-116); ASPARTATE AMINOTRANSFERASE 27 U/L (15-37); BILIRUBIN,TOTAL 0.3 mg/dL (0.2-1.0); CALCIUM, SERUM 8.2 mg/dL (8.5-10.1); CARBON DIOXIDE 18 mmol/L (21-32); CHLORIDE 110 mmol/L (98-107); CREATININE 5.6 mg/dL (0.6-1.3); GLUCOSE 72 mg/dL (74-106); POTASSIUM 3.3 mmol/L (3.5-5.1); SODIUM SERUM 145 mmol/L (136-145); TOTAL PROTEIN, SERUM 5.1 g/dL (6.4-8.2); UREA NITROGEN, BLOOD 77 mg/dL (7-18)
[2023-06-29 07:06] LABS: HEPATITIS Be AB Positive (Negative)
[2023-06-29] MEDS: PANTOPRAZOLE 40 MG TABLET.DR PO SCH ×2 (07:30→08:27)
[2023-06-29] MEDS: LEVOTHYROXINE SODIUM 50 MCG TABLET PO SCH ×2 (07:30→08:27)
[2023-06-29] MEDS: CARBIDOPA/LEVODOPA 25/100 MG 1 UDTAB PO SCH ×5 (08:27→21:00)
[2023-06-29] MEDS: LACOSAMIDE 50 MG TABLET PO SCH ×3 (08:27→16:13)
[2023-06-29] MEDS: LEVETIRACETAM (250 MG) 250 MG TABLET PO SCH ×3 (08:27→16:11)
[2023-06-29] MEDS: TAMSULOSIN 0.4 MG CAP.SR.24H PO SCH ×3 (08:27→16:11)
[2023-06-29] MEDS: CALCIUM ACETATE 667 MG CAP/TAB PO SCH ×4 (08:27→16:11)
[2023-06-29] MEDS ORDERED: NEPRO VAN 237 ML CAN PO PRN (13:00)
[2023-06-29] MEDS: WARFARIN SODIUM 5 MG TABLET PO SCH (16:10)
[2023-06-29 22:27] LABS: ABG OXYGEN SATURATION 94.5 % (92.0-98.5); ABG PCO2 84.6 mmHg (35.0-45.0); ABG PH 6.884 (7.350-7.450); ABG PO2 100.5 mmHg (75.0-100.0); COHb 1.2 % (0.5-1.5); MetHb 0.3 % (0.0-1.5); O2Hb 93.1 % (94.0-97.0); SITE, ABG Right Brachial; VENT MODE, BG NC 36%
[2023-06-29] MEDS ORDERED: SODIUM BICARBONATE SYR 50 MEQ/50 ML DISP.SYRIN IV ONE (23:30)
[2023-06-29] MEDS ORDERED: NOREPINEPHRINE 4 MG/4 ML AMPUL IV ONE (23:53)
[2023-06-30] VITALS (94 sets, daily range): BP systolic 50–136; BP diastolic 33–104; TEMP 97–97.9; O2SAT 70–100
[2023-06-30] MEDS ORDERED: NOREPINEPHRINE 8 MG in IV NS 0.9% 242 ML IV PRN ×2
[2023-06-30] MEDS: NOREPINEPHRINE 8 MG in IV NS 0.9% 242 ML IV PRN ×2 (00:03→17:17)
[2023-06-30 00:26] LABS: ABG BASE EXCESS -13.5 mmol/L; ABG OXYGEN SATURATION 98.6 % (92.0-98.5); ABG PCO2 62.8 mmHg (35.0-45.0); ABG PH 7.049 (7.350-7.450); ABG TOTAL HEMOGLOBIN 10.5 G/dL (13.5-18.0); AaDO2 275.2 mmHg; COHb 0.3 % (0.5-1.5); MetHb 0.3 % (0.0-1.5); SITE, ABG Right Radial; VENT MODE, BG ST 15/5 24 100%
[2023-06-30] MEDS ORDERED: SODIUM BICARBONATE SYR 50 MEQ/50 ML DISP.SYRIN ONE (00:50)
[2023-06-30] MEDS ORDERED: Sodium Bicarbonate 100 MEQ in IV NS 0.9% 1,000 ML IV PRN (01:00)
[2023-06-30] MEDS: IPRATROPIUM NEB FS 0.5 MG/2.5 ML AMPUL.NEB NEB SCH ×4 (02:21→20:11)
[2023-06-30] MEDS: ALBUTEROL FS 2.5 MG/3 ML VIAL.NEB NEB SCH ×4 (02:21→19:30)
[2023-06-30 05:14] LABS: INR 1.54 (0.91-1.10); PROTHROMBIN TIME 15.9 SECS (9.2-11.1)
[2023-06-30] MEDS: METRONIDAZOLE 500MG/ NS 100ML 500 MG in PREMIX 1 EA IV SCH ×3 (05:19→21:44)
[2023-06-30] MEDS ORDERED: VANCOMYCIN POST DIALYSIS 500MG IV PRN ×2 (06:00)
[2023-06-30] MEDS: VANCOMYCIN HCL 125 MG/2.5 ML ORAL.SUSP PO SCH ×4 (06:00→17:21)
[2023-06-30] MEDS ORDERED: ALBUMIN 5% 12.5 GM in PREMIX 1 EA IV PRN (07:00)
[2023-06-30] MEDS: PANTOPRAZOLE 40 MG TABLET.DR PO SCH (07:30)
[2023-06-30] MEDS: LEVOTHYROXINE SODIUM 50 MCG TABLET PO SCH (07:30)
[2023-06-30] MEDS ORDERED: ALBUMIN 25% 25 GM in PREMIX 1 EA IV PRN (07:30)
[2023-06-30 08:07] LABS: BASOPHILS % (AUTO) 0.1 % (0.0-2.0); EOSINOPHILS % (AUTO) 0.1 % (0.0-6.0); HEMATOCRIT 36 % (39-51); LYMPHOCYTES # (AUTO) 0.2 K/uL (0.8-4.8); LYMPHOCYTES % (AUTO) 1.4 % (20.0-44.0); MEAN CORPUSCULAR HEMOGLOBIN 22 PG (26.0-33.0); MEAN CORPUSCULAR HGB CONC 31 g/dl (31.0-36.0); MEAN CORPUSCULAR VOLUME 71 fL (80-96); MONOCYTES # (AUTO) 0.6 K/uL (0.1-1.30); MONOCYTES % (AUTO) 4.1 % (2.0-12.0); NEUTROPHILS # (AUTO) 14.7 K/uL (1.8-8.9); NEUTROPHILS % (AUTO) 94.3 % (43.0-81.0); PLATELET COUNT (AUTO) 212 K/uL (150-450); RED BLOOD CELL COUNT(AUTO) 5.02 MIL/uL (4.5-6.0); RED CELL DISTRIBUTION WIDTH 21.2 % (11.5-15.0); WHITE BLOOD COUNT (AUTO) 15.6 K/uL (4.3-11.0)
[2023-06-30 08:15] LABS: CARBON DIOXIDE 18 mmol/L (21-32); CHLORIDE 111 mmol/L (98-107); GLUCOSE 72 mg/dL (74-106); POTASSIUM 3.6 mmol/L (3.5-5.1); SODIUM SERUM 147 mmol/L (136-145); UREA NITROGEN, BLOOD 78 mg/dL (7-18)
[2023-06-30 08:19] LABS: MAGNESIUM 2.2 mg/dL (1.8-2.4); PHOSPHORUS 7.3 mg/dL (2.5-4.9)
[2023-06-30 08:21] LABS: ALANINE AMINOTRANSFERASE < 6 U/L (12-78); ALKALINE PHOSPHATASE 75 U/L (46-116); ASPARTATE AMINOTRANSFERASE 26 U/L (15-37); BILIRUBIN,TOTAL 0.3 mg/dL (0.2-1.0); TOTAL PROTEIN, SERUM 5.2 g/dL (6.4-8.2)
[2023-06-30] MEDS: LEVETIRACETAM (250 MG) 250 MG TABLET PO SCH ×2 (08:42→16:47)
[2023-06-30] MEDS: TAMSULOSIN 0.4 MG CAP.SR.24H PO SCH ×2 (08:42→16:47)
[2023-06-30] MEDS: CARBIDOPA/LEVODOPA 25/100 MG 1 UDTAB PO SCH ×4 (08:42→21:00)
[2023-06-30] MEDS: CALCIUM ACETATE 667 MG CAP/TAB PO SCH ×3 (08:42→16:47)
[2023-06-30] MEDS: LACOSAMIDE 50 MG TABLET PO SCH ×2 (08:42→16:47)
[2023-06-30 10:08] LABS: ABG OXYGEN SATURATION 98.2 % (92.0-98.5); ABG PCO2 47.6 mmHg (35.0-45.0); ABG PH 7.136 (7.350-7.450); ABG PO2 178.1 mmHg (75.0-100.0); ABG TOTAL HEMOGLOBIN 11.4 G/dL (13.5-18.0); AaDO2 16.1 mmHg; COHb 0.5 % (0.5-1.5); MetHb 0.3 % (0.0-1.5); O2Hb 97.4 % (94.0-97.0); SITE, ABG Right Radial; VENT MODE, BG 3L NC
[2023-06-30] MEDS: methylPREDNISolone SOD SUCC 40 MG/ML VIAL IV SCH ×3 (10:18→21:44)
[2023-06-30] MEDS: Sodium Bicarbonate 100 MEQ in IV NS 0.9% 1,000 ML IV SCH ×2 (11:19→23:08)
[2023-06-30 11:36] LABS: BAND % (MANUAL) 3 % (0.0-5.0); NEUTROPHILS % (MANUAL) 88 (42-76)
[2023-06-30 11:37] LABS: LYMPHOCYTES % (MANUAL) 3 % (16-48); MONOCYTES % (MANUAL) 6 % (0-11.0)
[2023-06-30 11:39] LABS: PLATELET ESTIMATE ADEQUATE
[2023-06-30 11:40] LABS: ANISOCYTOSIS 1+; TARGET CELLS 1+
[2023-06-30] MEDS: WARFARIN SODIUM 5 MG TABLET PO SCH (16:47)
[2023-06-30] MEDS ORDERED: PHENYLEPHRINE 100 MG in IV NS 0.9% 240 ML IV PRN (18:30)
[2023-07-01] VITALS (72 sets, daily range): BP systolic 59–169; BP diastolic 45–98; TEMP 97.7–99; O2SAT 97–100
[2023-07-01] MEDS: ALBUTEROL FS 2.5 MG/3 ML VIAL.NEB NEB SCH ×4 (01:50→19:48)
[2023-07-01] MEDS: IPRATROPIUM NEB FS 0.5 MG/2.5 ML AMPUL.NEB NEB SCH ×4 (01:50→19:48)
[2023-07-01 03:51] LABS: BASOPHILS % (AUTO) 0.2 % (0.0-2.0); HEMATOCRIT 32 % (39-51); HEMOGLOBIN 10.3 g/dL (13.5-17.5); LYMPHOCYTES # (AUTO) 0.2 K/uL (0.8-4.8); LYMPHOCYTES % (AUTO) 1.2 % (20.0-44.0); MEAN CORPUSCULAR HEMOGLOBIN 22 PG (26.0-33.0); MEAN CORPUSCULAR HGB CONC 32 g/dl (31.0-36.0); MEAN CORPUSCULAR VOLUME 69 fL (80-96); MONOCYTES # (AUTO) 0.5 K/uL (0.1-1.30); MONOCYTES % (AUTO) 2.3 % (2.0-12.0); NEUTROPHILS # (AUTO) 19.5 K/uL (1.8-8.9); NEUTROPHILS % (AUTO) 96.3 % (43.0-81.0); PLATELET COUNT (AUTO) 202 K/uL (150-450); RED BLOOD CELL COUNT(AUTO) 4.66 MIL/uL (4.5-6.0); RED CELL DISTRIBUTION WIDTH 20.4 % (11.5-15.0); WHITE BLOOD COUNT (AUTO) 20.2 K/uL (4.3-11.0)
[2023-07-01 04:00] LABS: ALANINE AMINOTRANSFERASE < 6 U/L (12-78); ALBUMIN 1.9 g/dL (3.4-5.0); ALKALINE PHOSPHATASE 75 U/L (46-116); ASPARTATE AMINOTRANSFERASE 90 U/L (15-37); BILIRUBIN,TOTAL 0.4 mg/dL (0.2-1.0); CALCIUM, SERUM 8.1 mg/dL (8.5-10.1); CARBON DIOXIDE 18 mmol/L (21-32); CHLORIDE 114 mmol/L (98-107); CREATININE 5.4 mg/dL (0.6-1.3); GLUCOSE 85 mg/dL (74-106); INR 1.5 (0.91-1.10); MAGNESIUM 1.9 mg/dL (1.8-2.4); PHOSPHORUS 6.9 mg/dL (2.5-4.9); POTASSIUM 3.9 mmol/L (3.5-5.1); PROTHROMBIN TIME 15.5 SECS (9.2-11.1); SODIUM SERUM 152 mmol/L (136-145); UREA NITROGEN, BLOOD 66 mg/dL (7-18)
[2023-07-01 05:08] LABS: ANISOCYTOSIS 1+; PLATELET ESTIMATE ADEQUATE
[2023-07-01 05:09] LABS: HYPOCHROMASIA 2+
[2023-07-01] MEDS: methylPREDNISolone SOD SUCC 40 MG/ML VIAL IV SCH ×3 (05:10→21:34)
[2023-07-01] MEDS: METRONIDAZOLE 500MG/ NS 100ML 500 MG in PREMIX 1 EA IV SCH ×3 (05:11→21:34)
[2023-07-01 05:31] LABS: LYMPHOCYTES % (MANUAL) 1 % (16-48); NEUTROPHILS % (MANUAL) 99 (42-76)
[2023-07-01] MEDS: VANCOMYCIN HCL 125 MG/2.5 ML ORAL.SUSP PO SCH ×4 (05:56→17:48)
[2023-07-01] MEDS: PANTOPRAZOLE 40 MG TABLET.DR PO SCH (07:30)
[2023-07-01] MEDS: LEVOTHYROXINE SODIUM 50 MCG TABLET PO SCH (07:30)
[2023-07-01] MEDS: Sodium Bicarbonate 100 MEQ in IV NS 0.9% 1,000 ML IV SCH ×3 (07:45→19:27)
[2023-07-01] MEDS: CARBIDOPA/LEVODOPA 25/100 MG 1 UDTAB PO SCH ×4 (09:00→21:00)
[2023-07-01] MEDS: LEVETIRACETAM (250 MG) 250 MG TABLET PO SCH ×2 (09:00→17:00)
[2023-07-01] MEDS: CALCIUM ACETATE 667 MG CAP/TAB PO SCH ×3 (09:00→17:00)
[2023-07-01] MEDS: LACOSAMIDE 50 MG TABLET PO SCH ×2 (09:00→17:00)
[2023-07-01] MEDS ORDERED: AMIODARONE 450 MG in IV D5W 241 ML IV PRN (09:00)
[2023-07-01] MEDS ORDERED: AMIODARONE 150 MG in IV D5W 100 ML IV ONE (09:00)
[2023-07-01] MEDS ORDERED: AMIODARONE 450 MG in IV D5W 250 ML IV PRN (09:00)
[2023-07-01] MEDS: TAMSULOSIN 0.4 MG CAP.SR.24H PO SCH ×2 (09:00→17:00)
[2023-07-01 09:26] LABS: ABG OXYGEN SATURATION 97.5 % (92.0-98.5); ABG PCO2 31.9 mmHg (35.0-45.0); ABG PH 7.236 (7.350-7.450); ABG PO2 138.1 mmHg (75.0-100.0); AaDO2 110.4 mmHg; COHb 0.3 % (0.5-1.5); MetHb 0.3 % (0.0-1.5); O2Hb 96.9 % (94.0-97.0); SITE, ABG Right Radial
[2023-07-01] MEDS: WARFARIN SODIUM 5 MG TABLET PO SCH (17:00)
[2023-07-01] MEDS: hydrALAZINE HCL IV 20 MG VIAL IV PRN (22:33)
[2023-07-02] VITALS (20 sets, daily range): BP systolic 105–165; BP diastolic 45–90; TEMP 97.7–98.8; O2SAT 44–100
[2023-07-02] MEDS: ALBUTEROL FS 2.5 MG/3 ML VIAL.NEB NEB SCH ×3 (01:29→12:58)
[2023-07-02] MEDS: IPRATROPIUM NEB FS 0.5 MG/2.5 ML AMPUL.NEB NEB SCH ×3 (01:29→12:58)
[2023-07-02 04:40] LABS: BASOPHILS % (AUTO) 0.1 % (0.0-2.0); EOSINOPHILS % (AUTO) 0.1 % (0.0-6.0); HEMATOCRIT 26 % (39-51); HEMOGLOBIN 8.2 g/dL (13.5-17.5); LYMPHOCYTES # (AUTO) 0.3 K/uL (0.8-4.8); LYMPHOCYTES % (AUTO) 1.4 % (20.0-44.0); MEAN CORPUSCULAR HEMOGLOBIN 22 PG (26.0-33.0); MEAN CORPUSCULAR HGB CONC 31 g/dl (31.0-36.0); MEAN CORPUSCULAR VOLUME 69 fL (80-96); MONOCYTES # (AUTO) 0.5 K/uL (0.1-1.30); MONOCYTES % (AUTO) 2.5 % (2.0-12.0); NEUTROPHILS # (AUTO) 18.8 K/uL (1.8-8.9); NEUTROPHILS % (AUTO) 95.9 % (43.0-81.0); PLATELET COUNT (AUTO) 127 K/uL (150-450); RED BLOOD CELL COUNT(AUTO) 3.79 MIL/uL (4.5-6.0); RED CELL DISTRIBUTION WIDTH 19.3 % (11.5-15.0); WHITE BLOOD COUNT (AUTO) 19.6 K/uL (4.3-11.0)
[2023-07-02 04:42] LABS: INR 2.45 (0.91-1.10); PROTHROMBIN TIME 24.5 SECS (9.2-11.1)
[2023-07-02 04:47] LABS: ALANINE AMINOTRANSFERASE 428 U/L (12-78); ALBUMIN 1.7 g/dL (3.4-5.0); ALKALINE PHOSPHATASE 79 U/L (46-116); ASPARTATE AMINOTRANSFERASE -10 U/L (15-37); BILIRUBIN,TOTAL 0.8 mg/dL (0.2-1.0); CALCIUM, SERUM 7.6 mg/dL (8.5-10.1); CARBON DIOXIDE 23 mmol/L (21-32); CHLORIDE 113 mmol/L (98-107); CREATININE 4.2 mg/dL (0.6-1.3); GLUCOSE 99 mg/dL (74-106); PHOSPHORUS 6.1 mg/dL (2.5-4.9); POTASSIUM 3.7 mmol/L (3.5-5.1); SODIUM SERUM 153 mmol/L (136-145); TOTAL PROTEIN, SERUM 4.3 g/dL (6.4-8.2); UREA NITROGEN, BLOOD 55 mg/dL (7-18)
[2023-07-02] MEDS: METRONIDAZOLE 500MG/ NS 100ML 500 MG in PREMIX 1 EA IV SCH ×2 (05:08→12:28)
[2023-07-02] MEDS: methylPREDNISolone SOD SUCC 40 MG/ML VIAL IV SCH ×2 (05:08→12:28)
[2023-07-02 05:14] LABS: ABG BASE EXCESS -4.7 mmol/L; ABG OXYGEN SATURATION 90.6 % (92.0-98.5); ABG PCO2 39.4 mmHg (35.0-45.0); ABG PH 7.338 (7.350-7.450); ABG PO2 71.6 mmHg (75.0-100.0); ABG TOTAL HEMOGLOBIN 9.2 G/dL (13.5-18.0); AaDO2 168.3 mmHg; COHb 0.3 % (0.5-1.5); MetHb 0.3 % (0.0-1.5); O2Hb 90.1 % (94.0-97.0); SITE, ABG Right Radial
[2023-07-02] MEDS: Sodium Bicarbonate 100 MEQ in IV NS 0.9% 1,000 ML IV SCH (05:26)
[2023-07-02 05:39] LABS: ANISOCYTOSIS 1+; HYPOCHROMASIA 2+; LYMPHOCYTES % (MANUAL) 2 % (16-48); MONOCYTES % (MANUAL) 1 % (0-11.0); NEUTROPHILS % (MANUAL) 97 (42-76); PLATELET ESTIMATE DECREASED
[2023-07-02 05:40] LABS: TARGET CELLS 1+
[2023-07-02] MEDS: VANCOMYCIN HCL 125 MG/2.5 ML ORAL.SUSP PO SCH ×3 (06:00→12:00)
[2023-07-02] MEDS: hydrALAZINE HCL IV 20 MG VIAL IV PRN (06:08)
[2023-07-02] MEDS: LEVOTHYROXINE SODIUM 50 MCG TABLET PO SCH (07:30)
[2023-07-02] MEDS: PANTOPRAZOLE 40 MG TABLET.DR PO SCH (07:30)
[2023-07-02] MEDS: TAMSULOSIN 0.4 MG CAP.SR.24H PO SCH (08:01)
[2023-07-02] MEDS: CARBIDOPA/LEVODOPA 25/100 MG 1 UDTAB PO SCH ×2 (08:02→12:26)
[2023-07-02] MEDS: LACOSAMIDE 50 MG TABLET PO SCH (08:02)
[2023-07-02] MEDS: LEVETIRACETAM (250 MG) 250 MG TABLET PO SCH (08:02)
[2023-07-02] MEDS: CALCIUM ACETATE 667 MG CAP/TAB PO SCH ×2 (08:02→12:26)
[2023-07-02 09:28] LABS: ABG BASE EXCESS -3.7 mmol/L; ABG OXYGEN SATURATION 97.3 % (92.0-98.5); ABG PCO2 38.7 mmHg (35.0-45.0); ABG PO2 138.6 mmHg (75.0-100.0); AaDO2 102.1 mmHg; MetHb 0.3 % (0.0-1.5); SITE, ABG Right Radial; VENT MODE, BG BIPAP 15/5
[2023-07-02] MEDS ORDERED: IV NS 0.9% 250 ML IV PRN ×2 (09:30→10:00)
[2023-07-02] MEDS ORDERED: IV D5W 1,000 ML IV PRN (13:30)
== END 2023-07-02 15:46 | DRG 871 ==
LOC: ER 21:36 → ICU 06-22 01:52 → TELE1 06-22 15:28 → ICU 06-26 20:09 → TELE1 06-28 14:58 → ICU 06-29 22:54
PROVIDERS: ADMIT Nurse Practitioner Acute Care
PROC: 30233N1 Transfusion of Nonautologous Red Blood Cells into Peripheral Vein, Percutaneous Approach (ICD-10-PCS; principal; 2023-06-22)
PROC: 5A1D70Z Performance of Urinary Filtration, Intermittent, Less than 6 Hours Per Day (ICD-10-PCS; 2023-06-26)
PROC: 0DB68ZX Excision of Stomach, Via Natural or Artificial Opening Endoscopic, Diagnostic (ICD-10-PCS; 2023-06-26)
PROC: 02HV33Z Insertion of Infusion Device into Superior Vena Cava, Percutaneous Approach (ICD-10-PCS; 2023-06-26)
PROC: B548ZZA Ultrasonography of Superior Vena Cava, Guidance (ICD-10-PCS; 2023-06-26)
DX: A41.9 Sepsis, unspecified organism (principal); G93.41 Metabolic encephalopathy; N17.0 Acute kidney failure with tubular necrosis; R65.21 Severe sepsis with septic shock; J96.01 Acute respiratory failure with hypoxia; E44.0 Moderate protein-calorie malnutrition; E87.4 Mixed disorder of acid-base balance; I48.92 Unspecified atrial flutter; J98.11 Atelectasis; N39.0 Urinary tract infection, site not specified; A04.72 Enterocolitis due to Clostridium difficile, not specified as recurrent; I82.623 Acute embolism and thrombosis of deep veins of upper extremity, bilateral; J90 Pleural effusion, not elsewhere classified; I13.0 Hypertensive heart and chronic kidney disease with heart failure and stage 1 through stage 4 chronic kidney disease, or unspecified chronic kidney disease; G40.909 Epilepsy, unspecified, not intractable, without status epilepticus; N18.9 Chronic kidney disease, unspecified; Z51.5 Encounter for palliative care; K26.9 Duodenal ulcer, unspecified as acute or chronic, without hemorrhage or perforation; K29.70 Gastritis, unspecified, without bleeding; D50.9 Iron deficiency anemia, unspecified; E78.5 Hyperlipidemia, unspecified; E86.1 Hypovolemia; E88.09 Other disorders of plasma-protein metabolism, not elsewhere classified; I25.10 Atherosclerotic heart disease of native coronary artery without angina pectoris; I48.91 Unspecified atrial fibrillation; I50.9 Heart failure, unspecified; J44.9 Chronic obstructive pulmonary disease, unspecified; K21.9 Gastro-esophageal reflux disease without esophagitis; N28.1 Cyst of kidney, acquired; N40.1 Benign prostatic hyperplasia with lower urinary tract symptoms; Z66 Do not resuscitate; Z79.01 Long term (current) use of anticoagulants; Z79.899 Other long term (current) drug therapy; Z87.11 Personal history of peptic ulcer disease; Z95.1 Presence of aortocoronary bypass graft; Z95.2 Presence of prosthetic heart valve; Z96.642 Presence of left artificial hip joint; R00.1 Bradycardia, unspecified; G20.A1 Parkinson's disease without dyskinesia, without mention of fluctuations; Z68.24 Body mass index [BMI] 24.0-24.9, adult; I35.0 Nonrheumatic aortic (valve) stenosis; R62.7 Adult failure to thrive; R79.1 Abnormal coagulation profile; T45.515A Adverse effect of anticoagulants, initial encounter; Y92.009 Unspecified place in unspecified non-institutional (private) residence as the place of occurrence of the external cause
CPT/HCPCS: 36415; 36600; 71045-TC; 71250-TC; 76770-TC; 80048-TC; 80053-TC; 80061-TC; 80076-TC; 80202-TC; 81001; 82533; 82550-TC; 82570-TC; 82728-TC; 82803-TC; 83540-TC; 83605-TC; 83735-TC; 83880; 83970; 84100-TC; 84155; 84165; 84300-TC; 84439-TC; 84443-TC; 84484-TC; 85025-TC; 85027-TC; 85610-TC; 85730-TC; 86704; 86705; 86706; 86707; 86803; 86850-TC; 87040-TC; 87081-TC; 87086-TC; 90935-TC; 93307-TC; 94660; 94799-TC; A4216; A4217; A4223; A6403; G0378; J0171; J0282; J0360; J0461; J0692; J1650; J1953; J2543; J2704; J2916; J2920; J3370; J3430; J3475; J3490; J7030; J7040; J7050; J7060; P9016; P9047